=== PATIENT | female | born 1940 | race Caucasian/White ===

== ENCOUNTER 2019-12-26 12:16 | Emergency (ER) | payer MEDICARE, SELFPAY ==
[2019-12-26 12:28] VITALS: BP 133/76; PULSE 62; RESP 17; TEMP 36.4; O2SAT 94; BMI 22.6
--- NOTE | 2019-12-26 13:01 | ED_ITS ---
Entered by Osmany Chi, acting as scribe for Dec 26, 2019 12:16 HPI - General Adult General: Chief complaint: General Medical Stated complaint: dizzy/high bp Time Seen by Provider: 12/26/19 13:04 History of Present Illness: HPI narrative: 79 yo female presents with dizziness and elevated blood pressure. Pt states that she has had this issue for about 1 week. pt states that she can't stand without almost falling. Pt denies any new medications or med changes recently. Pt denies fever. Pt states that she has had nausea. Pt states that her dizziness is relieved when she lays flat. Associated symptoms: Reports nausea; Deny chest pain, dyspnea, malaise or rash Review of Systems Const: Denies: fever, chills, body aches, change in appetite, fatigue or malaise ENMT: Denies: throat pain, ear pain, nasal discharge or nasal congestion Card: Denies: chest pain, edema, shortness of breath on exertion or shortness of breath when lying down Resp: Denies: shortness of breath, productive cough or non-productive cough GI: Reports: nausea : Denies: flank pain, difficulty urinating, painful urination, urinary frequency or urinary urgency Skin/Breast: Denies: rash or itching PFSH ED PFSH: Statuses (acute, chronic, etc) shown below reflect problem list status as previously entered and may not be historically accurate Social History Smoking and tobacco status: current every day smoker Physical Exam Const: COMMON NORMALS: no apparent distress GENERAL APPEARANCE: cooperative and comfortable ORIENTATION/CONSCIOUSNESS: Yes awake, Yes oriented to person, Yes oriented to place and Yes oriented to time HENMT: COMMON NORMALS: normocephalic, head/scalp atraumatic, hearing grossly normal bilaterally, external ears normal, EAC's normal, TM's normal bilaterally, nasal mucous membranes and turbinates normal, moist oral mucous membranes and oropharynx normal HEAD & SCALP: normocephalic and atraumatic NOSE: nasal mucous membranes and turbinates normal EXTERNAL EAR: Yes external ears normal EXTERNAL AUDITORY CANAL: EAC's normal TYMPANIC MEMBRANE: TM's normal bilaterally Eye: COMMON NORMALS: PERRL, EOMs intact bilaterally, conjunctivae normal and no scleral icterus CONJUNCTIVA: Yes conjunctivae normal PUPIL: Yes PERRL Neck/C-Spine: COMMON NORMALS: full ROM, no lymphadenopathy, supple and no JVD Lymph: LYMPHATIC: no lymphadenopathy noted and no lymphedema noted Resp: COMMON NORMALS: normal respiratory effort, no retractions, no use of accessory muscles and clear to auscultation bilaterally AUSCULTATION: clear to auscultation bilaterally Cardio: COMMON NORMALS: no JVD, regular rate, regular rhythm and no murmurs RATE: regular rate RHYTHM: regular rhythm GI: COMMON NORMALS: soft to palpation and no hepatosplenomegaly AUSCULTATION: Yes normoactive bowel sounds PALPATION: Yes soft, No tender, No guarding and Yes no hepatosplenomegaly Extremity: COMMON NORMALS: normal to inspection, normal capillary refill, no clubbing, cyanosis or edema, no calf tenderness and no pedal edema Neuro: SENSORIUM/ORIENTATION: Yes oriented to person, Yes oriented to place and Yes oriented to time Skin: COMMON NORMALS: no rashes or lesions noted GENERAL SKIN EXAM: no rashes or lesions noted Course ED course: blood pressure is ok. Start emds below. Follow up with PCP - if persists may need to see PT fro vestibular rehab. Vital Signs: Vital signs: Vital Signs Temperature 97.5 F L 12/26/19 12:28 Pulse Rate 57 L 12/26/19 16:31 Respiratory Rate 222 H 12/26/19 16:31 Blood Pressure 147/76 12/26/19 16:31 Pulse Oximetry 96 12/26/19 16:31 MDM - General Adult Lab Data: Labs: Lab Results 12/26/19 12/26/19 Range/Units 13:25 13:25 WBC 5.2 (4.0-10.0) 10^3/ uL RBC 4.31 (4.1-5.3) 10^6/u L Hgb 12.3 (11.5-15.3) g/dL Hct 41.4 (37.0-47.0) % MCV 96.1 (81-99) fL MCH 28.5 (28.0-34.0) pg MCHC 29.7 L (30.0-36.0) g/dL RDW 14.1 (12.1-15.1) % Plt Count 323 (130-400) 10^3/c mm MPV 10.5 H (7.4-10.4) fL Neut % (Auto) 51.6 % Lymph % (Auto) 26.7 % Rosebud % (Auto) 15.3 % Eos % (Auto) 5.4 % Baso % (Auto) 0.6 % Neut # (Auto) 2.7 (1.8-7.7) 10^3/u L Lymph # (Auto) 1.4 (0.8-4.8) 10^3/u L Rosebud # (Auto) 0.8 (0.2-0.9) 10^3/u L Eos # (Auto) 0.3 (0.0-0.8) 10^3/u L Baso # (Auto) 0.0 (0.0-0.1) 10^3/u L Nucleated RBC % (a uto) 0 % Nucleated RBCs # 0.0 /100WBC Sodium 136 (136-145) mmol/L Potassium 5.3 H (3.5-5.1) mmol/L Chloride 103 (98-107) mmol/L Carbon Dioxide 23 (22-29) mmol/L Anion Gap 15.3 (5-19) BUN 38 H (8-23) mg/dL Creatinine 1.7 H (0.5-0.9) mg/dL Glucose 91 (65-115) mg/dL Calculated Osmolal ity 279 L (285-295) mOsm/k g Calcium 9.1 (8.5-10.5) mg/dL Discharge Plan Discharge Patient Disposition: Home, Self-Care Clinical Impression: Acute labyrinthitis Condition: Stable Prescriptions: New meclizine 25 mg tablet 25 mg PO QID PRN (Reason: dizziness) Qty: 20 RF: 0 Ativan 0.5 mg tablet 0.5 mg PO QID PRN (Reason: vertigo) Qty: 14 RF: 0 No Action meloxicam 15 mg tablet 15 mg PO ONCE RF: 0 guaifenesin PO DIRECTED RF: 0 azithromycin 250 mg tablet See Rx Instructions PO .COMPLEX Qty: 6 RF: 0 losartan 50 mg tablet 50 mg PO QDAY Qty: 90 RF: 0 bupropion HCl 150 mg tablet extended release 24 hr 150 mg PO QAM Qty: 90 RF: 0 Discharge Orders: Discharge Order (Routine); Ordered 12/26/19 Ordered By: Nicolas Mak Referrals: Jo-Ann Fuller, [employer] [Primary Care Provider] - Discharge Diet: Usual diet Discharge Activity: Increase activity as tolerated Activity Restrictions/Additional Instructions: Follow-up with your doctor if not improving. Return to the emergency room if more worsens Discharge Date/Time: 12/26/19 16:33 Coding Level of Care Code ED Corset Fitter for Chg Fwd Exam Problem Focused The documentation recorded by the Alon bueno Kialy, accurately reflects the service I personally performed and the decisions made by Obdulio romo Curtis L, DO Dec 26, 2019 12:16
--- NOTE | 2019-12-26 13:13 | ECG_ITS ---
Measurements Intervals [place] Rate: 65 P: 76 CA: 138 QRS: 45 QRSD: 84 T: 62 QT: 411 QTc: 428 SINUS RHYTHM WITH SINUS ARRHYTHMIA POSSIBLE RIGHT VENTRICULAR CONDUCTION DELAY [RSR (QR) IN V1/V2] No previous ECG available for comparison Electronically Signed On 12-27-2019 0:19:23 FLUX PLANT OPERATOR by Eduarda Hernandez M.D. [id number]
[2019-12-26 13:26] VITALS: BP 131/85; PULSE 58; RESP 18; O2SAT 93
[2019-12-26 13:29] VITALS: BP 131/85; BP 146/83; BP 147/70; PULSE 61; PULSE 63; PULSE 68
[2019-12-26] MEDS: sodium chloride 0.9% 500 ML 999 ML IV (13:35)
[2019-12-26 13:41] LABS: Basophils % 0.6 %; Eosinophils # 0.3 10^3/uL (0.0-0.8); Eosinophils % 5.4 %; Hematocrit 41.4 % (37.0-47.0); Hemoglobin 12.3 g/dL (11.5-15.3); Lymphocytes # 1.4 10^3/uL (0.8-4.8); Lymphocytes % 26.7 %; Mean Corpuscular HGB Conc 29.7 g/dL (30.0-36.0); Mean Corpuscular Hemoglobin 28.5 pg (28.0-34.0); Mean Corpuscular Volume 96.1 fL (81-99); Mean Platelet Volume 10.5 fL (7.4-10.4); Monocytes # 0.8 10^3/uL (0.2-0.9); Monocytes % 15.3 %; Neutrophils # 2.7 10^3/uL (1.8-7.7); Neutrophils % 51.6 %; Nucleated Red Blood Cells % 0 %; Platelet Count 323 10^3/cmm (130-400); Red Blood Count 4.31 10^6/uL (4.1-5.3); Red Cell Distribution Width 14.1 % (12.1-15.1); White Blood Count 5.2 10^3/uL (4.0-10.0)
--- NOTE | 2019-12-26 13:41 | CT_ITS ---
WS: [id number] CT ANGIOGRAM HEAD AND NECK HISTORY: 79 years old Female with tia / cva COMPARISON: None available. TECHNIQUE: 2.[address] images of the head and neck followed by 1.25 mm post IV contra st axial CT images of the head and neck with sagittal and coronal reformats including MIP reformats, and 3-D vascular analysis based on NASCET criteria. DLP: 1727.[address] scans at [facility] use at least one of these dose optimization techniques: automat ed exposure control; mA and/or kV adjustment per patient size (includes targeted exams where dose is matched to clinical indication); or iterative reconstruction. CT ANGIOGRAM NECK: VASCULAR FINDINGS: Included visualized aortic arch is patent with moderate atheromatous plaque. Innominate artery and le ft subclavian artery origin calcific atheromatous plaque with mild left subclavian artery stenosis. RIGHT CAROTID AND VERTEBRAL ARTERIES: Common carotid artery course and caliber are within normal limits. Carotid bulb and proximal internal carotid artery calcific atheromatous changes. Proximal and middle third cervical internal carotid a rtery tortuosity with acute angle at the middle third segment and associated approximately 50% stenos is. Remainder of the cervical internal carotid artery caliber are within normal limits. Vertebral art eries patent and markedly hypoplastic. No evidence of aneurysm, dissection, or arteriovenous malforma tion. LEFT CAROTID AND VERTEBRAL ARTERIES: Common carotid artery origin moderate stenosis related to calcific atheromatous plaque. Remainder of the common carotid artery course caliber are within normal limits. Mildly tortuous cervical internal carotid artery with with normal caliber and no atheromatous plaque. Severe proximal vertebral artery stenosis related to atheromatous plaque. Middle and proximal third vertebral artery variable mild to moderate stenosis related to atheromatous plaque. No evidence of aneurysm, dissection, or arterioveno us malformation. NONVASCULAR FINDINGS: Severe bilateral upper lobe centrilobular emphysematous changes. No consolidation, mass, nodule in th e upper lungs. Cervical and included thoracic esophagus unremarkable. Trachea unremarkable. Right thy roid lobe 9.6 mm nodule. Remainder of the thyroid gland is unremarkable. Parotid, submandibular gland s and spaces are unremarkable. Subglottic, glottic, infraglottic laryngeal structures and spaces unre markable. No solid or cystic mass, fluid collection, enlarged lymph node identified. Multilevel cervi evelio spine spondylosis with C2 anterolisthesis C3 2 mm and C7 anterolisthesis T1 2 mm and T1 anterolis thesis T2 [address] ANGIOGRAM HEAD: VASCULAR FINDINGS: The dural sinuses and major cortical draining veins enhance appropriately. ANTERIOR CIRCULATION: Mild left cavernous segment internal carotid artery calcific atherosclerotic plaque with mild stenosi s. Otherwise bilateral petrous, cavernous, and supraclinoid segment internal carotid arteries enhance appropriately. The anterior communicating making artery is unremarkable. The bilateral middle and an terior cerebral artery first and second segments are unremarkable. The more distal interhemispheric f sylvie and sylvian fissure branches are unremarkable. No evidence of aneurysm, arterial cut off, or shyla riovenous malformation. POSTERIOR CIRCULATION: The left posterior inferior cerebellar artery is dominant. Right anterior inferior cerebellar artery is dominant. Superior cerebellar and posterior cerebral arteries unremarkable. Posterior to making ar teries are absent. Basilar artery and basilar artery tip are unremarkable. No evidence of aneurysm, a rterial cut off, or arteriovenous malformation. NONVASCULAR FINDINGS: No intra-axial or extra-axial abnormal enhancement. Globes and orbital soft tissues are unremarkable. CT/CT angio headneck* [id number] IMPRESSION: 1. Right cervical internal carotid artery tortuosity with associated developmen paola variant acute angle with resultant approximately 50% stenosis. No atheromat ous plaque contributing to cervical internal carotid artery stenosis bilaterall y. 2. No cervical internal carotid artery significant stenosis secondary to athero sclerotic disease. 3. Hypoplastic right vertebral artery and severely stenotic left proximal verte bral artery. 4. Severe chronic emphysema. IMPRESSION: 1. Mild left cavernous segment internal carotid artery atheromatous plaque with mild stenosis. 2. Nonvisualization of the right distal vertebral artery and right posterior in ferior cerebellar artery may be due to congenital/developmental variation. Dist al vertebral artery occlusion not excluded. 3. No evidence of aneurysm. 4. Absent posterior communicating arteries and unremarkable anterior communicat ing artery.
--- NOTE | 2019-12-26 13:43 | CT_ITS ---
WS: [id number] CT HEAD HISTORY: 79 years old Female with cva / tia COMPARISON: None available. TECHNIQUE: 2.[address] images of the head With 2-D reformats. DLP: 687.[address] scans at [facility] use at least one of these dose optimization techniques: automat ed exposure control; mA and/or kV adjustment per patient size (includes targeted exams where dose is matched to clinical indication); or iterative reconstruction. FINDINGS: No intracranial hemorrhage, midline shift, or other mass effect. Mild-moderate bilateral periventricu lar and hunter radiata white matter low-attenuation. Marie-white matter differentiation is maintained. Moderate cerebral and cerebellar parenchymal volume loss. Symmetric ventricular prominence. No extra -axial or intraventricular attenuation abnormality. Bilateral cavernous segment internal carotid shyla ry calcific atheromatous changes. Globes and orbital soft tissues unremarkable. Nasal frontal soft tissues unremarkable. No depressed o r linear skull fracture. No osteolytic or osteoblastic change. Clear mastoid air cells and included p aranasal sinuses. No depressed or linear skull fracture. No osteolytic or osteoblastic change. Scalp and remaining extracranial spaces and soft tissues unremarkable. CT/CT head wo con* [id number] IMPRESSION: 1. No intracranial hemorrhage or mass effect 2. Mild left and moderate chronic small vessel ischemic change. 3. Moderate cerebral and cerebellar parenchymal loss. 4. Anterior circulation atherosclerosis.
[2019-12-26 13:55] LABS: Anion Gap 15.3 (5-19); Blood Urea Nitrogen 38 mg/dL (8-23); Calcium 9.1 mg/dL (8.5-10.5); Carbon Dioxide 23 mmol/L (22-29); Chloride 103 mmol/L (98-107); Glucose 91 mg/dL (65-115); Osmolality Calculated 279 mOsm/kg (285-295); Potassium 5.3 mmol/L (3.5-5.1); Sodium 136 mmol/L (136-145)
--- NOTE | 2019-12-26 14:05 | XR_ITS ---
WS: [id number] ONE VIEW CHEST HISTORY: 79 years old Female with DYSPNEA AP upright chest no comparison FINDINGS: Lungs are hyperexpanded with diaphragm flattening. Mild lower lung zone increased interstitial markin gs. No pneumothorax, pleural effusion, consolidation/atelectasis. Heart size unremarkable. Central pu lmonary artery enlargement and tortuous thoracic aorta atherosclerosis. No subdiaphragmatic free air. Bilateral glenohumeral joint arthroplasty changes. XR/XR chest 1V portable [id number] IMPRESSION: 1. No definite acute cardiopulmonary findings. 2. Findings suggestive of chronic emphysema. Correlate clinically. 3. Atherosclerosis and prior bilateral glenohumeral joint arthroplasty.
[2019-12-26] MEDS: iodixanol 320 mg/mL 100mL Btl IV (14:23)
[2019-12-26] MEDS: sodium chloride 0.9% 1,000 ML 999 ML IV (14:34)
[2019-12-26] MEDS: LORazepam 2 mg/mL INJ 1 mL 0.5 MG IVP (16:09)
[2019-12-26 16:31] VITALS: BP 147/76; PULSE 57; RESP 222; O2SAT 96
== END 2019-12-26 16:33 | disposition home or self-care (01) ==
PROVIDERS: Emergency Provider Family Medicine; Family Provider Nurse Practitioner; PCP Nurse Practitioner
DX: H83.09 Labyrinthitis, unspecified ear (principal); F17.200 Nicotine dependence, unspecified, uncomplicated
CPT/HCPCS: 36415; 70450; 70496; 70498; 71045; 80048; 85025; 93005; 96360; 96361; 96374; 99283; 99284; A9270; J2060; J7030; J7040; Q9967

== ENCOUNTER → 2020-07-18 15:15 | Outpatient (BNVA) | payer MEDICARE, SELFPAY | PROVIDERS: Family Provider Nurse Practitioner; PCP Nurse Practitioner; Visit Provider Nurse Practitioner | DX: I10 Essential (primary) hypertension (principal); F41.9 Anxiety disorder, unspecified; M19.90 Unspecified osteoarthritis, unspecified site; J44.9 Chronic obstructive pulmonary disease, unspecified | CPT/HCPCS: 71046; 80053; 80061; 84443; 85025 ==

== ENCOUNTER → 2020-07-20 11:50 | Outpatient (BNVA) | payer MEDICARE, SELFPAY | PROVIDERS: Family Provider Nurse Practitioner; PCP Nurse Practitioner; Visit Provider Nurse Practitioner | DX: Z20.828 Contact with and (suspected) exposure to other viral communicable diseases (principal); F41.9 Anxiety disorder, unspecified; I10 Essential (primary) hypertension | CPT/HCPCS: 87635 ==

== ENCOUNTER 2020-09-15 09:46 | Outpatient (CLI) | payer MEDICARE, SELFPAY ==
--- NOTE | 2020-09-15 11:30 | CT_ITS ---
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 CT scan of the chest without contrast. No priors. There is an 1.8 cm soft tissue pleural-based nodule identified in the left lower lobe along the media l left diaphragm. No other pulmonary nodules or masses identified. The lungs are fully inflated and o therwise clear. Emphysematous changes noted. The thoracic aorta is normal in caliber. The airway is p atent. Coronary artery calcifications noted. No significant lymphadenopathy in the chest. No pleural or pericardial effusion noted. No destructive bone lesions are chest wall defects. CT/CT chest abd pel wo con IMPRESSION: 1. 1.8 cm pleural-based soft tissue nodule identified in the left lower lobe al amado the medial left diaphragm. Malignancy not excluded. No other pulmonary nodu les or masses were identified. No lymphadenopathy in the chest. 2. Pulmonary hyperinflation and emphysematous changes. CT scan of the abdomen and pelvis with oral contrast. The liver and spleen are unremarkable. The gallbladder is surgically absent. Pr ominent common bile duct measuring 1.3 cm in greatest diameter may be due to re servoir effect. The pancreas and spleen are unremarkable. 1 cm hyperdense nodul e at the superior pole of the right kidney which may represent a hemorrhagic or proteinaceous cyst. 1 cm cyst along the posterior margin of the left kidney. T he abdominal aorta is normal in caliber. No adrenal masses. Small bowel loops a re not dilated. No free air. No significant lymphadenopathy in the abdomen or p xiao. Moderate amount of retained stool in the large bowel. No sign of acute a ppendix. Marked diverticulosis of the sigmoid colon but no sign of acute divert iculitis. No obvious mass or adenopathy in the pelvis. Urinary bladder is intac t as visualized. Metallic deflexion artifact in the pelvis secondary to bilater al total hip replacements. Decompression laminectomy of the lumbar spine from L 3 to S1. Degenerative anterolisthesis of L2 on L3. Marked degenerative change o f the upper lumbar spine and lower thoracic spine. IMPRESSION: 1. No mass, lymphadenopathy or acute finding in the abdomen or pelvis. 2. Marked sigmoid diverticulosis but no sign of acute diverticulitis. 3. Prominent common bile duct probably due to reservoir effect from prior bakari cystectomy.
== END 2020-09-15 09:47 | disposition home or self-care (01) ==
LOC: RADWPI 09:52
PROVIDERS: PCP Nurse Practitioner; Visit Provider Nurse Practitioner
DX: N18.4 Chronic kidney disease, stage 4 (severe) (principal); M89.8X9 Other specified disorders of bone, unspecified site; F17.200 Nicotine dependence, unspecified, uncomplicated; M79.89 Other specified soft tissue disorders; K57.30 Diverticulosis of large intestine without perforation or abscess without bleeding
CPT/HCPCS: 71250; 74176; 80069; 82043; 83883; 84155; 84165

== ENCOUNTER 2020-09-22 12:56 | Outpatient (CLI) | payer MEDICARE, SELFPAY ==
--- NOTE | 2020-09-22 13:02 | US_ITS ---
WS: [id number] RENAL ULTRASOUND REASON FOR EXAM: CHRONIC KIDNEY DZ-STAGE 4 TECHNIQUE: Grayscale and Doppler ultrasound examination of the kidneys. FINDINGS: Visualization of the kidneys was suboptimal, especially the left due to the large amount of overlying bowel gas. Right kidney: Right kidney measures 9.8 cm x 4.4 cm x 4.6 cm. Right renal cortex 1.30 cm in thickness . No mass, calculus, or hydronephrosis. Left kidney: Left kidney measures 7.5 cm x 3.6 cm x 4.7 cm. Left renal cortex 1.15 cm in thickness. S mall sonolucency in the upper pole of the left kidney measuring 1.44 x 1.20 x 1.18 cm. No calculus or hydronephrosis. No abnormality of the urinary bladder. The abdominal aorta ranged in diameter from 1.77 cm to 2.26 cm. The wall of the abdominal aorta was i rregular compatible with diffuse atheromatous change. US/US renal BI* [id number] IMPRESSION: Small left kidney difficult to visualize. Small left renal cyst.
== END 2020-09-22 12:57 | disposition home or self-care (01) ==
LOC: US 13:00
PROVIDERS: PCP Nurse Practitioner; Visit Provider Internal Medicine Nephrology
DX: N18.4 Chronic kidney disease, stage 4 (severe) (principal); N28.1 Cyst of kidney, acquired
CPT/HCPCS: 76770

== ENCOUNTER → 2020-10-04 15:56 | Outpatient (BNVA) | payer MEDICARE, SELFPAY | PROVIDERS: PCP Nurse Practitioner; Visit Provider Nurse Practitioner | DX: N18.4 Chronic kidney disease, stage 4 (severe) (principal); F41.9 Anxiety disorder, unspecified; I71.4 Abdominal aortic aneurysm, without rupture | CPT/HCPCS: 80048; 80069; 85025 ==

== ENCOUNTER → 2020-11-09 10:00 | Outpatient (BNVA) | payer MEDICARE, SELFPAY | PROVIDERS: PCP Nurse Practitioner; Visit Provider Internal Medicine Nephrology | DX: N18.4 Chronic kidney disease, stage 4 (severe) (principal) | CPT/HCPCS: 80069; 82310; 83970 ==

== ENCOUNTER → 2020-11-30 11:03 | Outpatient (BNVA) | payer MEDICARE, SELFPAY | PROVIDERS: PCP Nurse Practitioner; Visit Provider Nurse Practitioner | DX: I10 Essential (primary) hypertension (principal); F41.9 Anxiety disorder, unspecified; Z96.643 Presence of artificial hip joint, bilateral | CPT/HCPCS: 80053; 80061 ==

== ENCOUNTER → 2021-01-25 11:21 | Outpatient (BNVA) | payer MEDICARE, SELFPAY | PROVIDERS: PCP Nurse Practitioner; Visit Provider Nurse Practitioner | DX: F41.9 Anxiety disorder, unspecified (principal); I10 Essential (primary) hypertension; J44.9 Chronic obstructive pulmonary disease, unspecified; M54.5 Low back pain; N18.4 Chronic kidney disease, stage 4 (severe); M79.10 Myalgia, unspecified site | CPT/HCPCS: 80053; 80061; 80069; 82310; 83970; 84443; 85025 ==

== ENCOUNTER → 2021-04-05 11:07 | Outpatient (BNVA) | payer MEDICARE, SELFPAY | PROVIDERS: PCP Nurse Practitioner; Visit Provider Nurse Practitioner | DX: N18.4 Chronic kidney disease, stage 4 (severe) (principal); M25.551 Pain in right hip; W19.XXXA Unspecified fall, initial encounter | CPT/HCPCS: 73502; 80069 ==

== ENCOUNTER → 2021-05-04 09:56 | Outpatient (BNVA) | payer MEDICARE, SELFPAY | PROVIDERS: PCP Nurse Practitioner; Visit Provider Nurse Practitioner | DX: I10 Essential (primary) hypertension (principal); J44.9 Chronic obstructive pulmonary disease, unspecified; N18.4 Chronic kidney disease, stage 4 (severe); Z94.0 Kidney transplant status; F41.9 Anxiety disorder, unspecified; M54.5 Low back pain; M79.18 Myalgia, other site | CPT/HCPCS: 80069; 82306; 82310; 82570; 83970; 84156; 84450; 84460; 85025 ==

== ENCOUNTER → 2021-07-06 10:36 | Outpatient (BNVA) | payer MEDICARE, SELFPAY | PROVIDERS: PCP Nurse Practitioner; Visit Provider Internal Medicine Nephrology | DX: N18.4 Chronic kidney disease, stage 4 (severe) (principal); Z94.0 Kidney transplant status | CPT/HCPCS: 80069; 82570; 84156 ==

== ENCOUNTER → 2021-09-14 10:06 | Outpatient (BNVA) | payer MEDICARE, SELFPAY | PROVIDERS: PCP Nurse Practitioner; Visit Provider Internal Medicine Nephrology | DX: N18.4 Chronic kidney disease, stage 4 (severe) (principal) | CPT/HCPCS: 80069; 82310; 83970 ==

== ENCOUNTER → 2021-10-20 09:08 | Outpatient (BNVA) | payer MEDICARE, SELFPAY | PROVIDERS: PCP Nurse Practitioner; Visit Provider Internal Medicine Nephrology | DX: Z01.812 Encounter for preprocedural laboratory examination (principal); Z20.822 Contact with and (suspected) exposure to COVID-19; N18.4 Chronic kidney disease, stage 4 (severe) | CPT/HCPCS: 80069; 87635 ==

== ENCOUNTER → 2021-11-07 10:11 | Outpatient (BNVA) | payer MEDICARE, SELFPAY | PROVIDERS: PCP Nurse Practitioner; Visit Provider Internal Medicine Nephrology | DX: N18.5 Chronic kidney disease, stage 5 (principal); Z11.59 Encounter for screening for other viral diseases | CPT/HCPCS: 80069; 80074 ==

== ENCOUNTER → 2022-03-26 12:02 | Outpatient (BNVA) | payer MEDICARE, SELFPAY | PROVIDERS: PCP Nurse Practitioner; Visit Provider Nurse Practitioner | DX: I10 Essential (primary) hypertension (principal); N18.4 Chronic kidney disease, stage 4 (severe) | CPT/HCPCS: 80069; 81000; 82043; 82310; 83970; 85025 ==

== ENCOUNTER → 2022-03-28 09:45 | Outpatient (BNVA) | payer MEDICARE, SELFPAY | PROVIDERS: PCP Nurse Practitioner; Visit Provider Internal Medicine Nephrology | DX: N18.4 Chronic kidney disease, stage 4 (severe) (principal) | CPT/HCPCS: 82570; 84540 ==

== ENCOUNTER → 2022-04-09 10:09 | Outpatient (BNVA) | payer MEDICARE, SELFPAY | PROVIDERS: PCP Nurse Practitioner; Visit Provider Nurse Practitioner | DX: N18.4 Chronic kidney disease, stage 4 (severe) (principal) | CPT/HCPCS: 82570; 84540 ==

== ENCOUNTER → 2022-04-24 13:29 | Outpatient (BNVA) | payer MEDICARE, SELFPAY | PROVIDERS: PCP Nurse Practitioner; Visit Provider Nurse Practitioner | DX: N18.5 Chronic kidney disease, stage 5 (principal); F41.9 Anxiety disorder, unspecified; J44.9 Chronic obstructive pulmonary disease, unspecified; S41.119A Laceration without foreign body of unspecified upper arm, initial encounter; M79.18 Myalgia, other site | CPT/HCPCS: 80069; 82043; 82310; 83970; 85025; 86705; 86706; 87340 ==

== ENCOUNTER → 2022-06-13 09:48 | Outpatient (BNVA) | payer MEDICARE, SELFPAY | PROVIDERS: PCP Nurse Practitioner; Visit Provider Nurse Practitioner | DX: J44.9 Chronic obstructive pulmonary disease, unspecified (principal); R05.9 Cough, unspecified | CPT/HCPCS: 71046; 80053; 85025; 87400; 87635 ==

== ENCOUNTER → 2022-07-24 10:58 | Outpatient (BNVA) | payer MEDICARE, SELFPAY | PROVIDERS: PCP Nurse Practitioner; Visit Provider Nurse Practitioner | DX: J44.9 Chronic obstructive pulmonary disease, unspecified (principal); R91.1 Solitary pulmonary nodule; J32.9 Chronic sinusitis, unspecified; N18.4 Chronic kidney disease, stage 4 (severe); F41.9 Anxiety disorder, unspecified; I10 Essential (primary) hypertension; R42 Dizziness and giddiness; M79.18 Myalgia, other site | CPT/HCPCS: 80053; 80061; 81000; 84443; 85025 ==

== ENCOUNTER → 2022-10-23 08:28 | Outpatient (BNVA) | payer MEDICARE, SELFPAY | PROVIDERS: PCP Nurse Practitioner; Visit Provider Nurse Practitioner | DX: J44.9 Chronic obstructive pulmonary disease, unspecified (principal); R91.1 Solitary pulmonary nodule; J32.9 Chronic sinusitis, unspecified; N18.4 Chronic kidney disease, stage 4 (severe); F41.9 Anxiety disorder, unspecified; I10 Essential (primary) hypertension; R42 Dizziness and giddiness; E03.8 Other specified hypothyroidism; E78.2 Mixed hyperlipidemia; M79.18 Myalgia, other site; M19.90 Unspecified osteoarthritis, unspecified site | CPT/HCPCS: 80053; 81000; 84443; 85025 ==

== ENCOUNTER → 2023-01-07 09:22 | Outpatient (BNVA) | payer MEDICARE, SELFPAY | PROVIDERS: PCP Nurse Practitioner; Visit Provider Nurse Practitioner | DX: E03.8 Other specified hypothyroidism (principal); F41.9 Anxiety disorder, unspecified; J44.9 Chronic obstructive pulmonary disease, unspecified; D64.9 Anemia, unspecified | CPT/HCPCS: 80053; 83550; 84443 ==

== ENCOUNTER → 2023-04-01 09:31 | Outpatient (BNVA) | payer MEDICARE, SELFPAY | PROVIDERS: PCP Nurse Practitioner; Visit Provider Nurse Practitioner | DX: I10 Essential (primary) hypertension (principal) | CPT/HCPCS: 80053; 80061; 84443 ==

== ENCOUNTER → 2023-06-21 07:58 | Outpatient (BNVA) | payer MEDICARE, SELFPAY | PROVIDERS: PCP Nurse Practitioner; Visit Provider Nurse Practitioner | DX: E03.8 Other specified hypothyroidism (principal); E78.2 Mixed hyperlipidemia | CPT/HCPCS: 80053; 80061; 84443; 85025 ==

== ENCOUNTER → 2023-09-13 10:58 | Outpatient (BNVA) | payer MEDICARE, SELFPAY | PROVIDERS: PCP Nurse Practitioner; Visit Provider Nurse Practitioner | DX: I10 Essential (primary) hypertension (principal); J44.9 Chronic obstructive pulmonary disease, unspecified; N18.4 Chronic kidney disease, stage 4 (severe); M79.10 Myalgia, unspecified site | CPT/HCPCS: 80053; 80061; 84443; 85025 ==

== ENCOUNTER 2023-09-30 08:09 | Outpatient (CLI) | payer OTHER, SELFPAY ==
--- NOTE | 2023-09-30 08:30 | CT_ITS ---
WS: [id number] CT HEAD TECHNIQUE: Noncontrast CT of the head obtained from the skullbase to the vertex. CLINICAL INFORMATION: N18.4 - Chronic kidney disease, stage 4 (severe) COMPARISON: December 2019 DLP: 1053.[address] scans at [facility] use at least one of these dose optimization techniques: automated e xposure control; mA and/or kV adjustment per patient size (includes targeted exams where dose is matc hed to clinical indication); or iterative reconstruction. FINDINGS: No evidence of intracranial hemorrhage or mass effect. Ventricular system and basal cisterns are rebollar nt. Mild small vessel changes with moderate parenchymal volume loss. Cavernous carotid calcification. No extra-axial fluid collections. No evidence of mass or mass effect. Paranasal sinuses and mastoid air cells are well aerated. .Normal visualized soft tissues. IMPRESSION: 1. No evidence of intracranial hemorrhage or mass effect. 2. Mild small vessel changes with moderate parenchymal volume loss. 3. Vascular calcification. 4. No acute intracranial findings.
== END 2023-09-30 08:10 | disposition home or self-care (01) ==
LOC: RAD 08:09
PROVIDERS: PCP Nurse Practitioner; Visit Provider Nurse Practitioner
DX: N18.4 Chronic kidney disease, stage 4 (severe) (principal); R51.9 Headache, unspecified
CPT/HCPCS: 70450

== ENCOUNTER 2023-10-07 16:11 | Outpatient (CLI) | payer OTHER, SELFPAY ==
--- NOTE | 2023-10-07 16:15 | USCV_ITS ---
Geri Barrett Age: 82 Gender: F : 1940 Exam Date: 10/07/2023 16:37 Ordering Phys: Jo-Ann Fuller Technologist: NOEL Exam Location: [facility] – [place] Indication: Dizziness Risk Factors: Previous Vascular Surgery: Right Brachial BP: / Left Brachial BP: / Right Left Velocity (cm/s) Spectral Plaque Velocity (cm/s) Spectral Plaque Syst/Diast Broadening Syst/Diast Broadening 52.60/ 12.50 Prox CCA 52.40 / 14.00 48.70/ 12.60 Mid CCA 54.00 / 14.20 57.20/ 15.80 Distal CCA 59.80 / 17.10 47.90/ 13.70 Prox ICA 50.20 / 21.20 66.70/ 21.40 Mid ICA 77.70 / 25.10 65.80/ 17.10 Distal ICA 63.50 / 21.20 126.10 ECA 58.80 1.17 ICA/CCA 1.30 Antegrade Vertebral Antegrade 27.80/ 8.50 cm/s 55.50/ 16.30 cm/s Tri Subclavian Tri 52.50 159.7 0 CONCLUSIONS Right ICA stenosis <50%. Mild atheromatous plaque right carotid bulb/ICA. Left ICA stenosis <50%. Mild atheromatous plaque left carotid bulb/ICA. Normal antegrade Doppler flow noted in the right vertebral artery. Normal antegrade Doppler flow noted in the left vertebral artery. Mario Alberto Emmanuel MD (Electronically Signed) Final Date: 08 October 2023 15:52 S
== END 2023-10-07 16:12 | disposition home or self-care (01) ==
LOC: RAD 16:11
PROVIDERS: PCP Nurse Practitioner; Visit Provider Nurse Practitioner
DX: R42 Dizziness and giddiness (principal); R41.3 Other amnesia; I65.23 Occlusion and stenosis of bilateral carotid arteries
CPT/HCPCS: 93880

== ENCOUNTER → 2023-10-09 09:03 | Outpatient (BNVA) | payer MEDICARE, SELFPAY | PROVIDERS: PCP Nurse Practitioner; Visit Provider Registered Nurse | DX: N18.4 Chronic kidney disease, stage 4 (severe) (principal) | CPT/HCPCS: 80069; 82043; 82310; 83970 ==

== ENCOUNTER → 2023-10-30 10:32 | Outpatient (BNVA) | payer MEDICARE, SELFPAY | PROVIDERS: PCP Nurse Practitioner; Visit Provider Nurse Practitioner | DX: M47.894 Other spondylosis, thoracic region (principal); M47.896 Other spondylosis, lumbar region; M47.892 Other spondylosis, cervical region | CPT/HCPCS: 72040; 72072; 72100 ==

== ENCOUNTER → 2023-11-06 12:31 | Outpatient (BNVA) | payer MEDICARE, SELFPAY | PROVIDERS: PCP Nurse Practitioner; Referring Provider Nurse Practitioner; Visit Provider Internal Medicine | DX: R07.9 Chest pain, unspecified (principal); I10 Essential (primary) hypertension; E78.2 Mixed hyperlipidemia; R06.09 Other forms of dyspnea; Z87.891 Personal history of nicotine dependence; R94.31 Abnormal electrocardiogram [ECG] [EKG] | CPT/HCPCS: 93005; 99204 ==

== ENCOUNTER 2023-11-25 10:05 | Outpatient (CLI) | payer MEDICARE, SELFPAY ==
--- NOTE | 2023-11-25 10:15 | USCV_ITS ---
Geri Barrett Age: 82 Gender: F : 1940 Exam Date: 11/25/2023 10:20 Ordering Phys: rFed Vaughan M.D ([email or web address]) Technologist: Magali Corea Exam Location: [facility] – [place] Indication: SOB, CP, BP: 128 / 70 HR: 55 Rhythm: Sinus Technical Quality: Adequate MEASUREMENTS (Male / Female) Normal Values 2D ECHO LV Diastolic Diameter PLAX 3.8 cm 4.2 - 5.9 / 3.9 - 5.3 cm LV Systolic Diameter PLAX 2.2 cm IVS Diastolic Thickness 1.2 cm 0.6 - 1.0 / 0.6 - 0.9 cm IVS Systolic Thickness 1.5 cm LVPW Diastolic Thickness 0.6 cm 0.6 - 1.0 / 0.6 - 0.9 cm LVPW Systolic Thickness 1.6 cm LVOT Diameter 2.2 cm LV Ejection Fraction 2D Teich 73.5 % LV Ejection Fraction MOD 2C 60.3 % LV Ejection Fraction 2C AL 61.0 % LA Diameter 3.3 cm LA Width 3.4 cm LA Height 4.3 cm RA Width 2.9 cm RA Height 3.7 cm Aorta at Sinotubular Diameter 2.9 cm IVC Diameter 1.4 cm M-MODE Aortic Annulus Diameter 2.5 cm LA Ao Ratio MM 1.2 MV E Point Septal Separation 0.6 cm DOPPLER AV Peak Velocity 143.0 cm/s LVOT Peak Velocity 102.0 cm/s AV Area Cont Eq vti 2.8 cm squared AV Area Cont Eq pk 2.6 cm squared MV Area PHT 2.8 cm squared Mitral E to A Ratio 0.8 MV E' Velocity 32.0 cm/s Mitral E to MV E' Ratio 7.0 Mitral E to LV E' Lateral Ratio 7.0 Mitral E to LV E' Septal Ratio 7.1 TR Peak Velocity 141.0 cm/s TR Peak Gradient 8.0 mmHg Right Atrial Pressure 5.0 mmHg Pulmonary Artery Systolic Pressu 13.0 mmHg PV Peak Velocity 98.0 cm/s RV Acceleration Time 0.1 s RV Ejection Time 0.3 s RV AcT/ET 0.4 FINDINGS Left Ventricle Left ventricle is normal in size. LV systolic function is normal with EF of 55 to 60%. No regional wall motion abnormalities are seen. Grade 1 diastolic dysfunction Right Ventricle Normal in size and function normal in size Right Atrium Normal in size Left Atrium Normal in size Mitral Valve Structurally normal mitral valve. Aortic Valve Structurally normal aortic valve. No significant stenosis or regurgitation seen.. Mild aortic regurgitation. Tricuspid Valve Trace tricuspid regurgitation. RVSP is normal. Pulmonic Valve Not well-visualized Pericardium Normal Aorta Normal in size IVC Appears to be normal CONCLUSIONS LV systolic function is normal with EF 55 to 60%. Grade 1 diastolic dysfunction Mild aortic regurgitation No comparison studies are available Fred Vaughan MD (Electronically Signed) Final Date: 10 December 2023 11:06 S
== END 2023-11-25 10:06 | disposition home or self-care (01) ==
LOC: RAD 10:06
PROVIDERS: PCP Nurse Practitioner; Visit Provider Internal Medicine
DX: R07.9 Chest pain, unspecified (principal); R06.02 Shortness of breath; I51.89 Other ill-defined heart diseases; I35.1 Nonrheumatic aortic (valve) insufficiency
CPT/HCPCS: 93306

== ENCOUNTER → 2024-01-02 09:09 | Outpatient (BNVA) | payer MEDICARE, SELFPAY | PROVIDERS: PCP Nurse Practitioner; Visit Provider Nurse Practitioner | DX: I10 Essential (primary) hypertension (principal); E03.8 Other specified hypothyroidism | CPT/HCPCS: 80053; 80061; 84443; 85025 ==

== ENCOUNTER 2024-01-24 10:18 | Outpatient (CLI) | payer MEDICARE, SELFPAY ==
--- NOTE | 2024-01-24 10:30 | CT_ITS ---
WS: [id number] CT chest wo con [id number] HISTORY: R06.02 - Shortness of breath TECHNIQUE: Axial imaging performed through the thorax. Coronal and sagittal reformats are submitted. All CT scans at [facility] use at least one of these dose optimization techniques: automated exposure control; mA and/or kV adjustment per patient size (includes targeted exams where dose is mat ched to clinical indication); or iterative reconstruction. CONTRAST: None DLP: 312.91 mGy.cm COMPARISON: 09/15/2020 Lungs and central airway: Mild emphysema. Reidentified is a pleural-based soft tissue nodule along th e LEFT lower lobe diaphragm measuring 9 x 10 mm which has not significantly changed in size since . Favor benign etiology dubious long-term stability. Otherwise mild interstitial thickening in chronic emphysematous changes. There is no mass or nodule. No pneumonia. No endobronchial lesions. Pleura: No effusion. Pleural-based nodule on the LEFT diaphragm 9 x 10 mm. Heart and pericardium: Moderate cardiomegaly. Moderate calcified plaque in the coronary arteries. Mediastinum and leslie: Mediastinum is difficult to evaluate completely without IV contrast. No lymph n odes are identified of any significance. Vessels: Moderate calcification in the thoracic aorta. Aorta is ectatic. Mildly dilated pulmonary art get to 3.3 cm. Chest wall and lower neck: No soft tissue masses. Upper abdomen: Moderate suprarenal aortic calcifications. No adrenal mass. Mildly hyperdense nodule f rom the superior pole RIGHT kidney measures 9 mm. Similar in size and attenuation as 09/15/2020. Ther e is a similar smaller nodule from the superior pole LEFT kidney. Mild diffuse pancreatic atrophy. Th ere is asymmetric atrophy or possible hernia along the LEFT abdominal wall above the umbilicus. This is only partially included and is not an acute finding. Osseous structures: Advanced degenerative changes throughout the visualized thoracic, cervical and crystal mbar spines. L2 anterolisthesis by 7 mm. 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 Bi lateral humeral head replacements. IMPRESSION: 1. Mild emphysema. No mass or pneumonia. 2. Moderate atherosclerotic plaque throughout the thoracic aorta and the coronary arteries. 3. Stable pleural-based nodule along the LEFT diaphragmatic surface measuring 9 x 10 mm. No change s judy 09/15/2020. 4. Moderate cardiomegaly. 5. No adenopathy. 6. Advanced degenerative changes of the visualized spine.
== END 2024-01-24 10:19 | disposition home or self-care (01) ==
LOC: RAD 10:25
PROVIDERS: PCP Nurse Practitioner; Visit Provider Nurse Practitioner
DX: J43.9 Emphysema, unspecified (principal); R91.1 Solitary pulmonary nodule
CPT/HCPCS: 71250

== ENCOUNTER → 2024-03-19 08:24 | Outpatient (BNVA) | payer MEDICARE, SELFPAY | PROVIDERS: PCP Nurse Practitioner; Visit Provider Nurse Practitioner | DX: N18.4 Chronic kidney disease, stage 4 (severe) (principal); I10 Essential (primary) hypertension; E03.8 Other specified hypothyroidism; M79.10 Myalgia, unspecified site; E55.9 Vitamin D deficiency, unspecified | CPT/HCPCS: 80053; 80061; 82306; 84443; 85025 ==

== ENCOUNTER → 2024-04-16 08:44 | Outpatient (BNVA) | payer MEDICARE, SELFPAY | PROVIDERS: PCP Nurse Practitioner; Visit Provider Nurse Practitioner | DX: N18.9 Chronic kidney disease, unspecified (principal); N18.4 Chronic kidney disease, stage 4 (severe) | CPT/HCPCS: 80069; 82043; 82310; 83970; 85025 ==

== ENCOUNTER → 2024-06-03 09:15 | Outpatient (BNVA) | payer MEDICARE, SELFPAY | PROVIDERS: PCP Nurse Practitioner; Visit Provider Nurse Practitioner | DX: E03.8 Other specified hypothyroidism (principal); M79.10 Myalgia, unspecified site; N18.4 Chronic kidney disease, stage 4 (severe) | CPT/HCPCS: 80053; 84443; 85025 ==

== ENCOUNTER → 2024-06-23 09:11 | Outpatient (BNVA) | payer MEDICARE, SELFPAY | PROVIDERS: PCP Nurse Practitioner; Visit Provider Nurse Practitioner | DX: N18.4 Chronic kidney disease, stage 4 (severe) (principal); R41.0 Disorientation, unspecified | CPT/HCPCS: 80048; 81000 ==

== ENCOUNTER → 2024-06-26 09:13 | Outpatient (BNVA) | payer MEDICARE, SELFPAY | PROVIDERS: PCP Nurse Practitioner; Visit Provider Nurse Practitioner | DX: N18.4 Chronic kidney disease, stage 4 (severe) (principal); E03.8 Other specified hypothyroidism | CPT/HCPCS: 80048; 82607; 84443 ==

== ENCOUNTER → 2024-07-02 09:19 | Outpatient (BNVA) | payer MEDICARE, SELFPAY | PROVIDERS: PCP Nurse Practitioner; Visit Provider Nurse Practitioner | DX: N18.4 Chronic kidney disease, stage 4 (severe) (principal) | CPT/HCPCS: 80048 ==

== ENCOUNTER → 2024-08-20 09:17 | Outpatient (BNVA) | payer MEDICARE, SELFPAY | PROVIDERS: PCP Nurse Practitioner; Visit Provider Nurse Practitioner | DX: N18.4 Chronic kidney disease, stage 4 (severe) (principal); I50.30 Unspecified diastolic (congestive) heart failure; M79.10 Myalgia, unspecified site | CPT/HCPCS: 80053; 80061; 84443; 85025 ==

== ENCOUNTER → 2024-09-11 09:26 | Outpatient (BNVA) | payer MEDICARE, SELFPAY | PROVIDERS: PCP Nurse Practitioner; Visit Provider Nurse Practitioner | DX: N18.4 Chronic kidney disease, stage 4 (severe) (principal); E55.9 Vitamin D deficiency, unspecified | CPT/HCPCS: 80069; 82043; 82306; 82310; 83970; 85025 ==

== ENCOUNTER → 2024-11-03 09:04 | Outpatient (BNVA) | payer MEDICARE, SELFPAY | PROVIDERS: PCP Nurse Practitioner; Visit Provider Nurse Practitioner | DX: E03.8 Other specified hypothyroidism (principal); E78.2 Mixed hyperlipidemia; N18.4 Chronic kidney disease, stage 4 (severe); M79.10 Myalgia, unspecified site; I10 Essential (primary) hypertension | CPT/HCPCS: 80053; 80061; 84443; 85025 ==

== ENCOUNTER → 2025-01-19 09:15 | Outpatient (BNVA) | payer MEDICARE, SELFPAY | PROVIDERS: PCP Nurse Practitioner; Visit Provider Nurse Practitioner | DX: N18.4 Chronic kidney disease, stage 4 (severe) (principal); I10 Essential (primary) hypertension; E03.8 Other specified hypothyroidism | CPT/HCPCS: 80053; 80061; 80069; 82043; 82310; 82607; 83970; 84443; 85025 ==

== ENCOUNTER → 2025-04-28 09:01 | Outpatient (BNVA) | payer MEDICARE, SELFPAY | PROVIDERS: PCP Nurse Practitioner; Visit Provider Nurse Practitioner | DX: E03.8 Other specified hypothyroidism (principal); N18.4 Chronic kidney disease, stage 4 (severe); I10 Essential (primary) hypertension; N18.9 Chronic kidney disease, unspecified; E55.9 Vitamin D deficiency, unspecified | CPT/HCPCS: 80053; 80069; 82043; 82306; 82310; 82607; 83970; 84443; 85025 ==

== ENCOUNTER → 2025-07-21 09:01 | Outpatient (BNVA) | payer MEDICARE, SELFPAY | PROVIDERS: PCP Nurse Practitioner; Visit Provider Nurse Practitioner | DX: N18.4 Chronic kidney disease, stage 4 (severe) (principal); I10 Essential (primary) hypertension; M79.10 Myalgia, unspecified site | CPT/HCPCS: 80053; 80061; 81003; 82043; 84443; 85025; 87086 ==

== ENCOUNTER → 2025-09-09 08:59 | Outpatient (BNVA) | payer MEDICARE, SELFPAY | PROVIDERS: PCP Nurse Practitioner; Visit Provider Nurse Practitioner | DX: N18.4 Chronic kidney disease, stage 4 (severe) (principal); N18.9 Chronic kidney disease, unspecified; I10 Essential (primary) hypertension | CPT/HCPCS: 80069; 82043; 82310; 83970; 85025 ==

== ENCOUNTER 2025-09-24 13:43 | Outpatient (CLI) | payer MEDICARE, SELFPAY ==
--- NOTE | 2025-09-24 13:49 | US_ITS ---
WS: [id number] RENAL ULTRASOUND HISTORY: FLANK PAIN COMPARISON: 09/22/2020 TECHNIQUE: 2-D and color Doppler imaging of the kidney submitted. Right kidney: 9.2 cm x 4.7 cm x 4.4 cm. Cortex: 0.9 cm Normal size kidneys mild cortical thinning. No mass identified. Left kidney: 8.2 cm x 4.0 cm x 3.8 cm. Cortex: 1.0 cm Mild renal atrophy. Increased echogenicity from medical renal disease. No obstruction. There are few similar small cortical cysts. The largest measures 1.6 cm. No solid mass identified. Aorta: Limited. Urinary Bladder: Minimally distended. US/US renal BI* [id number] IMPRESSION: 1. Mild stable LEFT renal atrophy and chronic medical renal disease. 2. Small cortical cysts, largest 1.6 cm. No solid mass. 3. Mild cortical thinning RIGHT kidney. No obstruction.
== END 2025-09-24 13:44 | disposition home or self-care (01) ==
LOC: RAD 13:44
PROVIDERS: PCP Nurse Practitioner; Visit Provider Registered Nurse
DX: R10.9 Unspecified abdominal pain (principal); N18.9 Chronic kidney disease, unspecified; R93.49 Abnormal radiologic findings on diagnostic imaging of other urinary organs; N28.89 Other specified disorders of kidney and ureter; N28.1 Cyst of kidney, acquired; R93.421 Abnormal radiologic findings on diagnostic imaging of right kidney
CPT/HCPCS: 76770

== ENCOUNTER → 2025-10-20 09:19 | Outpatient (BNVA) | payer MEDICARE, SELFPAY | PROVIDERS: PCP Nurse Practitioner; Visit Provider Nurse Practitioner | DX: N18.4 Chronic kidney disease, stage 4 (severe) (principal); E03.8 Other specified hypothyroidism; M79.10 Myalgia, unspecified site | CPT/HCPCS: 80053; 80061; 81000; 84443; 85025 ==